=== PATIENT | female | born 1960 | race Caucasian/White ===

== ENCOUNTER → 2018-11-11 | Outpatient (CLI) | payer OTHER ==
[2016-07-09 12:15] VITALS: BP 118/60
[~2018-11-11] MED LIST: OXYC1TAB15 PO
--- NOTE | 2018-11-11 10:22 | KCIC ---
Examination: MRI of the right knee without contrast HISTORY: History of right knee pain for one month in the medial aspect COMPARISON: None available TECHNIQUE: Multiplanar, multisequence MR imaging of the right knee was performed with contrast. FINDINGS: The anterior cruciate ligament, posterior cruciate ligament. The medial meniscus, lateral meniscus appears intact. The medial collateral ligament is intact. The lateral collateral ligamentous complex including the fibular collateral ligament, biceps femoris tendon, popliteus tendon appear intact. The medial, lateral retinaculum appear intact. The extensor mechanism is intact. There is deep fissuring of cartilage identified in the patellofemoral compartments. There is superficial fraying of cartilage identified in medial, lateral compartments. There is a moderate-sized popliteal cyst identified. There is a multiloculated cystic structure identified extending superiorly from the popliteal cyst region measuring 4 cm could be extension of the popliteal cyst or a ganglion cyst from the medial posterior knee capsule. Small hypointense foci identified within the popliteal cyst could be loose bodies or synovial prominence. Moderate joint space loss identified in the medial, lateral, patellofemoral compartments. Small knee joint effusion. IMPRESSION: 1. Moderate size popliteal cyst with a multiloculated cystic structure identified extending superiorly from the popliteal cyst region measuring 4 cm could be extension of the popliteal cyst or a ganglion cyst from the medial posterior knee capsule. Small hypointense foci identified within the popliteal cyst could be loose bodies or synovial prominence. 2. Tricompartmental degenerative changes. Grade III chondromalacia patella. 3. Small knee joint effusion. Electronically signed by: Jun Albarran MD (11/11/2018 10:20 AM) [facility]-[id number]
== END | disposition home or self-care (01) ==
LOC: KCIC MRI 07:28
PROVIDERS: ATTEND Orthopaedic Surgery
DX: M17.11 Unilateral primary osteoarthritis, right knee (principal); M71.21 Synovial cyst of popliteal space [Baker], right knee; M22.41 Chondromalacia patellae, right knee
CPT/HCPCS: 73721

== ENCOUNTER → 2020-07-06 | Outpatient (CLI) | payer OTHER ==
[2016-07-09 12:15] VITALS: BP 118/60
--- NOTE | 2020-07-06 16:18 | KCIC ---
EXAM: FOOT LEFT 2V 07/06/2020 12:00 AM CLINICAL INDICATION:Left foot pain, burning lung fifth metatarsal for 6 months. COMPARISON:None TECHNIQUE:2 views of the left FINDINGS:There is no acute fracture. Alignment is normal. Small dorsal osteophytes at the TMT joints. Joint spaces are maintained and bone mineralization is normal. No focal soft tissue abnormality. IMPRESSION:No acute abnormality. Mild degenerative joint disease of the tarsometatarsal joints. Electronically signed by: Tammy Cason MD (07/06/2020 4:15 PM) [id number]
== END ==
LOC: KCIC 15:08
PROVIDERS: ATTEND Internal Medicine Rheumatology
DX: M19.072 Primary osteoarthritis, left ankle and foot (principal); M25.775 Osteophyte, left foot
CPT/HCPCS: 73620

== ENCOUNTER → 2021-01-24 | Outpatient (CLI) | payer OTHER, BC ==
[2016-07-09 12:15] VITALS: BP 118/60
--- NOTE | 2021-01-24 16:09 | KCIC ---
2 view study of the right hand Clinical indications: Pain and popping of the right thumb for one year. FINDINGS: No acute fracture or dislocation or lytic process is evident. Scaphoid bone appears intact. There is severe primary degenerative osteophyte arthritis of the first carpal metacarpal joint. Ther e is a significant amount primary degenerative osteophytes arthritis of interphalangeal joints most p rominently involving the first interphalangeal joint and the fourth DIP joint with the latter demonst rating erosive osteoarthritis. There is mild primary degenerative osteoarthritis of the first and sec ond and third metacarpal phalangeal joints. There is a degenerative cyst or old post traumatic cyst o f the distal epiphysis of the third proximal phalanx. No calcification of the triangular fibrocartila ge complex is seen. IMPRESSION: No acute abnormality. Primary degenerative osteoarthritis most severely involving the fir st carpal metacarpal joint. Electronically signed by: Champ Tavarez MD (01/24/2021 4:07 PM) [id number]
== END ==
LOC: KCIC 15:46
PROVIDERS: ATTEND Family Medicine
DX: M18.11 Unilateral primary osteoarthritis of first carpometacarpal joint, right hand (principal)
CPT/HCPCS: 73120

== ENCOUNTER → 2021-06-30 | Outpatient (CLI) | payer OTHER, BC ==
[2016-07-09 12:15] VITALS: BP 118/60
--- NOTE | 2021-06-30 14:56 | KCIC ---
EXAMINATION: XR CHEST 2V CLINICAL HISTORY: Preoperative clearance EXAM DATE/TIME: 06/30/2021 12:00 PM COMPARISON: None FINDINGS: Lines, Tubes, and Devices: None. Cardiomediastinal Silhouette: Within normal limits. Lungs and Pleura: No evidence of focal airspace consolidation or pleural effusion. Pulmonary vasculat ure unremarkable. Bones and Soft Tissues: Degenerative changes in the thoracic spine. 2 tendon anchors in the right pro ximal humerus, compatible with rotator cuff repair. IMPRESSION: No evidence of acute cardiopulmonary abnormality. Electronically signed by: Steffen Lomas DO (06/30/2021 2:54 PM) HANY
== END ==
LOC: KCIC 11:47
PROVIDERS: ATTEND Family Medicine
DX: Z01.818 Encounter for other preprocedural examination (principal); M47.814 Spondylosis without myelopathy or radiculopathy, thoracic region
CPT/HCPCS: 71046

== ENCOUNTER → 2021-07-10 | Outpatient (CLI) | payer OTHER, BC ==
[2016-07-09 12:15] VITALS: BP 118/60
--- NOTE | 2021-07-10 16:08 | CARD ---
MR#: [id number] Date of Study: 07/10/2021 Ordering Physician: Elizabeth AWAN, Referring Physician: Elizabeth AWAN, Tech: Monica Idrislavonne, [facility] APPROVED REPORT EXAM: Two-dimensional and M-mode echocardiogram with Doppler and color Doppler. Other Information Quality : AverageHR: 79bpm INDICATION Pre-Op 2D DIMENSIONS RVDd3.1 (2.9-3.5cm)Left Atrium(2D)3.1 (1.6-4.0cm) IVSd0.8 (0.7-1.1cm)Aortic Root(2D)2.7 (2.0-3.7cm) LVDd4.6 (3.9-5.9cm)LVOT Diameter2.0 (1.8-2.4cm) PWd0.8 (0.7-1.1cm)LVDs2.7 (2.5-4.0cm) FS (%) 41.5 %SV72.3 ml LVEF(%)72.5 (>50%) Aortic Valve AoV Peak Paulino.138.9cm/sAoV VTI29.3cm AO Peak GR.7.7mmHgLVOT Peak Paulino.114.4cm/s LVOT VTI 25.51cmAO Mean GR.4mmHg NAYLA (VMAX)1.56cb1ZDH (VTI)2.69cm2 Mitral Valve MV E Fcahgeiu52.4cm/sMV DECEL WEKY897uh MV A Xmfukyzc67.1cm/sMV E Mean Gr.2mmHg MV RWL86rwG/A Ratio1.0 MVA (PHT)2.86cm2 TDI E/Lateral E'4.6E/Medial E'10.7 Pulmonary Valve PV Peak Kwodxigp13.1cm/sPV Peak Grad.4mmHg Tricuspid Valve TR P. Oqcgvinn312dk/sRAP LGNXIFVB0oqTb TR Peak Gr.83aiQuTKVC61ohIw Pulmonary Vein S1 Nxklscwn56.1cm/sD2 Nryolehk91.7cm/s PVa [id number] LEFT VENTRICLE The left ventricle is normal size. There is normal left ventricular wall thickness. The left ventricu lar systolic function is normal and the ejection fraction is within normal range. EF 55% There is nor mal LV segmental wall motion. The left ventricular diastolic function and filling is normal for age. No left ventricle thrombus noted on this study. There is no left ventricular aneurysm. There is no ma ss noted in the left ventricle. RIGHT VENTRICLE The right ventricle is normal size. There is normal right ventricular wall thickness. The right ventr icular systolic function is normal. ATRIA The left atrium size is normal. The right atrium size is normal. The interatrial septum is intact wit h no evidence for an atrial septal defect or patent foramen ovale as noted on 2-D or Doppler imaging. AORTIC VALVE The aortic valve is normal in structure and function. Doppler and Color Flow revealed no significant aortic regurgitation. There is no significant aortic valvular stenosis. Calculated aortic valve area is 2.79 cm2 with maximum pressure gradient of 9 mmHg and mean pressure gradient of 5 mmHg. MITRAL VALVE The mitral valve is normal in structure and function. There is no evidence of mitral valve prolapse. There is no mitral valve stenosis. Doppler and Color-flow revealed trace mitral regurgitation. TRICUSPID VALVE The tricuspid valve is normal in structure and function. Doppler and Color Flow revealed trace tricus pid regurgitation with an estimated PAP of 29 mmHg. There is no tricuspid valve stenosis. PULMONIC VALVE The pulmonic valve is not well visualized. Doppler and Color Flow revealed trace pulmonic valvular re gurgitation. There is no pulmonic valvular stenosis. GREAT VESSELS The aortic root is normal in size. The ascending aorta is normal in size. The IVC is normal in size a nd collapses >50% with inspiration. PERICARDIAL EFFUSION There is no evidence of significant pericardial effusion. Critical Notification Critical Value: No <Conclusion> The left ventricular systolic function is normal and the ejection fraction is within normal range. EF 55% There is normal LV segmental wall motion. Doppler and Color Flow revealed trace tricuspid regurgitation with an estimated PAP of 29 mmHg. Signed by : Sung Loza, Electronically Approved : 07/10/2021 16:08:39
== END ==
LOC: ECHO 14:22
PROVIDERS: ATTEND Family Medicine
DX: Z01.818 Encounter for other preprocedural examination (principal)
CPT/HCPCS: 93306